=== PATIENT | female | born 1985 | race Caucasian/White ===

== ENCOUNTER 2022-03-01 13:37 | Outpatient (CLI) | payer OTHER, SELFPAY ==
[2022-03-01 22:25] LABS: HIV 1/2/P24 Combo Screen* Negative (Negative)
[2022-03-01 22:34] LABS: Hepatitis C Virus Antibody* Negative (Negative)
[2022-03-01 23:13] LABS: Chlamydia DNA Amplified* NOT DETECTED (No Detected); GC DNA Amplified* NOT DETECTED (No Detected)
[2022-03-02 18:39] LABS: Hepatitis B Surface Antibody* Negative (Negative)
[2022-03-04 01:42] LABS: Rapid Plasma Reagin (RPR) Non Reactive (Non Reactive)
== END 2022-03-01 13:38 | disposition home or self-care (01) ==
PROVIDERS: PCP Physician Assistant Medical; Visit Provider Physician Assistant Medical
DX: Z01.419 Encounter for gynecological examination (general) (routine) without abnormal findings (principal); A64 Unspecified sexually transmitted disease; Z11.3 Encounter for screening for infections with a predominantly sexual mode of transmission; I51.7 Cardiomegaly
CPT/HCPCS: 86592; 86703; 86706; 86803; 87491; 87591

== ENCOUNTER 2022-03-14 21:00 | Outpatient (CLI) | payer OTHER, SELFPAY ==
--- NOTE | 2022-03-22 09:11 | W.PM.SLEEP ---
Sleep Study Details Details Interpreting Provider: Cl Dugan MD Date of Sleep Study: 03/14/22 Sleep Study Details: STUDY TYPE:? Hospital-based with CPAP ? BMI:? 33.4 ORDERING PROVIDER:? Kiko INDICATION:? Concerns about sleep apnea ? SLEEP SUMMARY:? 264 minutes total sleep time, efficiency 57.8, arousal index 17.5 RESPIRATORY SUMMARY:? AHI 12.3, supine AHI 21.4, supine REM AHI 67 nonsupine RDI 5.3 CPAP titration performed at a pressure of 5 and decreasing AHI to 1.9 included REM sleep in the nonsupine position PERIODIC LIMB MOVEMENTS OF SLEEP:? Index 1.2, index with arousal 0.3 pretreatment Post treatment there were no periodic limb movements CARDIAC:? Awake 75 asleep 70, no arrhythmias noted IMPRESSION:? Moderate obstructive sleep apnea with an overall AHI of 12.3 an overall RDI of 18.9. There is significant supine and REM dependency. CPAP titration at a pressure of 5 eliminate all events in the nonsupine position and included REM stage sleep RECOMMENDATION: Initiate AutoSet CPAP at a pressure of 4-17 with follow up in 1 month
== END 2022-03-14 21:01 | disposition home or self-care (01) ==
PROVIDERS: PCP Physician Assistant Medical; Visit Provider Physician Assistant Medical
DX: G47.33 Obstructive sleep apnea (adult) (pediatric) (principal)
CPT/HCPCS: 95811

== ENCOUNTER 2022-03-15 07:03 | Outpatient (CLI) | payer OTHER, SELFPAY ==
--- NOTE | 2022-03-15 07:15 | CRLHL7_ITS ---
For Patients: As a result of the Cures Act, medical imaging exams and procedure reports are released immediately into your electronic medical record. You may view this report before your referring provider. If you have questions, please contact your health care provider. CLINICAL HISTORY: Chest pain, possible stenosis TECHNIQUE: The carotid circulations and the vertebral arteries in the neck were examined with neal-scale ultrasound, color-flow and Doppler spectral analysis. Degrees of stenosis were determined using SRU 2002 Consensus Panel Criteria. FINDINGS: Sonographic images demonstrate no evidence of atherosclerotic plaque formation or suspicious soft tissue mass. There was antegrade blood flow demonstrated within the vertebral arteries and the subclavian arteries demonstrated a normal triphasic waveform. The spectral Doppler tracings of the common carotid, internal and external carotid arteries demonstrate no abnormal turbulence or spectral broadening. There was no significant elevation of peak systolic blood flow which would indicate a hemodynamically-significant stenosis by SRU criteria. The ICA/CCA peak systolic velocity ratio measures 0.8 on the right and 1.2 on the left. Incidental solid and cystic nodule within the right thyroid lobe measuring 1.6 x 0.8 x 1.4 cm. IMPRESSION: Normal carotid ultrasound. TR 3 1.6 cm nodule right thyroid lobe. Follow-up thyroid ultrasound in 1 year recommended. Dictated by Delfino Quiñones MD @ 03/15/2022 9:55:05 AM (Electronically Signed)
== END 2022-03-15 07:04 | disposition home or self-care (01) ==
PROVIDERS: PCP Physician Assistant Medical; Visit Provider Physician Assistant Medical
DX: R07.89 Other chest pain (principal)
CPT/HCPCS: 93880

== ENCOUNTER 2022-03-25 13:48 | Outpatient (CLI) | payer OTHER, SELFPAY ==
[2022-03-25 21:57] LABS: Albumin* 4.1 g/dL (3.3-5.0); Chloride* 108 mmol/L (96-114)
[2022-03-25 21:58] LABS: Potassium* 3.9 mmol/L (3.6-5.1); Sodium* 140 mmol/L (135-149)
[2022-03-25 22:00] LABS: Aspartate Amino Transferase* 16 U/L (12-35); Bilirubin Total* 0.5 mg/dL (0.1-1.5); Blood Urea Nitrogen* 8 mg/dL (5-24); Carbon Dioxide* 26 mmol/L (20-32); Cholesterol* 189 mg/dL (90-199); Creatinine* 0.7 mg/dL (0.5-1.5); Estimated Glomerular Filt Rate 115 ml/min; Glucose* 129 mg/dL (60-115); Total Protein* 6.9 g/dL (6.0-8.3)
[2022-03-25 22:01] LABS: Alanine Aminotransferase* 16 U/L (4-35); Alkaline Phosphatase* 55 U/L (40-150); Calcium* 8.7 mg/dL (8.4-10.6); HDL Cholesterol* 37 mg/dL (>=50); LDL Cholesterol Calculated 136 mg/dL (<100); Triglycerides* 81 mg/dL (40-149)
== END 2022-03-25 13:49 | disposition home or self-care (01) ==
LOC: FRMREF 16:25
PROVIDERS: PCP Physician Assistant Medical; Visit Provider Physician Assistant Medical
DX: I51.7 Cardiomegaly (principal); I65.23 Occlusion and stenosis of bilateral carotid arteries
CPT/HCPCS: 80053; 80061; 84443

== ENCOUNTER 2022-04-01 07:42 | Outpatient (CLI) | payer OTHER, SELFPAY | END 2022-04-01 07:43 | disposition home or self-care (01) | LOC: RAD 07:42 | PROVIDERS: PCP Physician Assistant Medical; Visit Provider Physician Assistant Medical | DX: I51.7 Cardiomegaly (principal) | CPT/HCPCS: 93306 ==

== ENCOUNTER 2022-10-06 11:30 | Outpatient (RCR) | payer OTHER, SELFPAY | END 2023-02-03 23:59 | disposition home or self-care (01) | PROVIDERS: PCP Physician Assistant Medical; Visit Provider Physician Assistant Medical | DX: M54.31 Sciatica, right side (principal); M54.50 Low back pain, unspecified; M79.18 Myalgia, other site; Z51.89 Encounter for other specified aftercare | CPT/HCPCS: 97110; 97140; 97161 ==

== ENCOUNTER 2024-03-12 08:03 | Outpatient (CLI) | payer BC, SELFPAY ==
[2024-03-15 05:42] LABS: HPV Source Cervical/Vag; HPV, High Risk by TMA Detected
[2024-03-15 17:55] LABS: HPV Genotype 16 by TMA Not Detected; HPV Genotype 18/45 by TMA Not Detected; HPVG Source Cervical/Vag
== END 2024-03-12 08:04 | disposition home or self-care (01) ==
PROVIDERS: PCP Physician Assistant Medical; Visit Provider Physician Assistant Medical
DX: E04.1 Nontoxic single thyroid nodule (principal); Z13.228 Encounter for screening for other metabolic disorders; Z13.220 Encounter for screening for lipoid disorders; Z11.4 Encounter for screening for human immunodeficiency virus [HIV]; Z11.59 Encounter for screening for other viral diseases; Z11.3 Encounter for screening for infections with a predominantly sexual mode of transmission; Z11.51 Encounter for screening for human papillomavirus (HPV); Z12.4 Encounter for screening for malignant neoplasm of cervix
CPT/HCPCS: 80053; 80061; 84443; 86592; 86703; 86706; 86803; 87340; 87491; 87591; 87624; 87625; 88141; 88142

== ENCOUNTER 2024-03-20 12:20 | Outpatient (CLI) | payer BC, SELFPAY ==
--- NOTE | 2024-03-20 12:15 | CRLHL7_ITS ---
For Patients: As a result of the Century Cures Act, medical imaging exams and procedure reports are released immediately into your electronic medical record. You may view this report before your referring provider. If you have questions, please contact your health care provider. INDICATION: Nontoxic thyroid nodule COMPARISON: Carotid ultrasound 03/15/2022 TECHNIQUE: Rolle scale and color Doppler images were acquired of the thyroid gland. FINDINGS: Isthmus measures 1.4 millimeter. Cystic nodule left thyroid lobe measures 5 x 2 x 3 millimeters, TR 2. Additional cystic nodule left thyroid lobe measures 8 x 6 x 6 millimeters, TR 1. Heterogeneous solid and cystic nodule right thyroid lobe measures 16 x 7 x 13 millimeters, TR 3, previously measuring 16 x 8 x 14 millimeters. The right lobe measures 5.1 x 1.6 x 2.1 cm and the left lobe measures 5.9 x 1.4 x 1.3 cm in size. The color Doppler images demonstrate normal vascularity. There is no evidence of cervical lymphadenopathy or parathyroid mass. IMPRESSION: Stable right-sided thyroid nodule. Dictated by Delfino Quiñones MD @ 03/20/2024 3:38:33 PM (Electronically Signed)
== END 2024-03-20 12:21 | disposition home or self-care (01) ==
LOC: US 12:21
PROVIDERS: PCP Physician Assistant Medical; Visit Provider Physician Assistant Medical
DX: E04.1 Nontoxic single thyroid nodule (principal)
CPT/HCPCS: 76536

== ENCOUNTER 2024-10-08 11:33 | Outpatient (CLI) | payer BC, SELFPAY | END 2024-10-08 11:34 | disposition home or self-care (01) | PROVIDERS: PCP Physician Assistant Medical; Visit Provider Family Medicine | DX: L29.9 Pruritus, unspecified (principal); Z79.899 Other long term (current) drug therapy | CPT/HCPCS: 82306; 82607; 84443 ==